=== PATIENT | male | born 1950 ===

== ENCOUNTER 2019-02-11 10:56 | Outpatient (CLI) | payer OTHER ==
[~2019-02-11] VITALS: Ht 175.3 cm; Wt 82.1 kg
== END 2019-02-11 11:15 | disposition home or self-care (01) ==
LOC: OFIC 805 10:56
DX: J34.89 Other specified disorders of nose and nasal sinuses (principal); R09.81 Nasal congestion; R04.0 Epistaxis

== ENCOUNTER 2019-03-01 10:12 | Outpatient (CLI) | payer OTHER ==
[~2019-03-01] VITALS: Ht 152.4 cm; Wt 82.1 kg
== END 2019-03-01 10:30 | disposition home or self-care (01) ==
LOC: OFIC 805 10:12
DX: R04.0 Epistaxis (principal); R09.81 Nasal congestion

== ENCOUNTER 2022-10-10 11:27 | Outpatient (CLI) | payer OTHER | END 2022-10-10 11:28 | disposition home or self-care (01) | LOC: EKG 11:27 | PROVIDERS: ATTEND Internal Medicine | DX: Z01.818 Encounter for other preprocedural examination (principal); Z01.810 Encounter for preprocedural cardiovascular examination; Z01.811 Encounter for preprocedural respiratory examination ==

== ENCOUNTER 2023-10-09 15:29 | Outpatient (CLI) | payer OTHER | END 2023-10-09 15:38 | disposition home or self-care (01) | LOC: RAD 15:29 | PROVIDERS: ATTEND Urology | DX: N20.0 Calculus of kidney (principal) ==